=== PATIENT | female | born 1970 | race Caucasian/White ===

== ENCOUNTER 2024-12-17 17:02 | Emergency (ER) | payer SELFPAY ==
--- OUTSIDE RECORDS SUMMARY | 2022-09-13 08:56 | XMS_ITS | Continuity of Care Document ---
Author Organization [facility] Address [address] [place] [address] Phone Care Team Providers Care Assistant Teacher Name Role Phone Physicians, [facility] Unavailable Unavailable Allergies, Adverse Reactions, Alerts Substance Reaction Status Criticality No Known Allergies Active No Inform ation Medications Medication Instructions Dosage Effective Dates (start - stop) Status Comments Taltz Syringe 80 mg/mL subcutaneous inject 1 milliliter by subcutaneous route every 4 weeks in the abdomen, thigh, or upper arm rotating injection sites 80 MG - Active Procedures Procedure Date Functional Outcome Documented Positive A ND Care Plan CHIROPRACTIC MANIPULATION CHIROPRACTIC MANIPULATION THERAPEUTIC EXERCISES NEUROMUSCULAR REEDUCATION Functional Outcome Documented Positive A ND Care Plan CHIROPRACTIC MANIPULATION Current Medications Documented By Provid er NEUROMUSCULAR REEDUCATION CHIROPRACTIC MANIPULATION Current Medications Documented By Provid er THERAPEUTIC EXERCISES CHIROPRACTIC MANIPULATION Current Medications Documented By Provid er THERAPEUTIC EXERCISES CHIROPRACTIC MANIPULATION CHIROPRACTIC MANIPULATION E-stim Unattended Therapeutic Procedure (each 15 Minutes) PT Unlisted Therapeutic Procedure Current Medications Documented By Provid er BMI Above Normal Limits And Follow Up Do cumented Screened For Tobacco Use And Cessation I nterventio PT High Complexity THERAPEUTIC EXERCISES CHIROPRACTIC MANIPULATION CHIROPRACTIC MANIPULATION E-stim Unattended Therapeutic Procedure (each 15 Minutes) PT Unlisted Therapeutic Procedure Functional Outcome Documented Positive A ND Care Plan CHIROPRACTIC MANIPULATION CHIROPRACTIC MANIPULATION E-stim Unattended Therapeutic Procedure (each 15 Minutes) PT Unlisted Therapeutic Procedure CHIROPRACTIC MANIPULATION CHIROPRACTIC MANIPULATION E-stim Unattended Therapeutic Procedure (each 15 Minutes) PT Unlisted Therapeutic Procedure CHIROPRACTIC MANIPULATION CHIROPRACTIC MANIPULATION E-stim Unattended Therapeutic Procedure (each 15 Minutes) PT Unlisted Therapeutic Procedure CHIROPRACTIC MANIPULATION CHIROPRACTIC MANIPULATION E-stim Unattended Therapeutic Procedure (each 15 Minutes) PT Unlisted Therapeutic Procedure THERAPEUTIC EXERCISES THERAPEUTIC EXERCISES Functional Outcome Documented Positive A ND Care Plan CHIROPRACTIC MANIPULATION CHIROPRACTIC MANIPULATION E-stim Unattended Therapeutic Procedure (each 15 Minutes) PT Unlisted Therapeutic Procedure CHIROPRACTIC MANIPULATION CHIROPRACTIC MANIPULATION E-stim Unattended Therapeutic Procedure (each 15 Minutes) PT Unlisted Therapeutic Procedure Current Medications Documented By Provid er BMI Above Normal Limits And Follow Up Do cumented Screened For Tobacco Use And Cessation I nterventio PT Moderate Complexity THERAPEUTIC EXERCISES CHIROPRACTIC MANIPULATION CHIROPRACTIC MANIPULATION E-stim Unattended Therapeutic Procedure (each 15 Minutes) PT Unlisted Therapeutic Procedure CHIROPRACTIC MANIPULATION CHIROPRACTIC MANIPULATION E-stim Unattended Therapeutic Procedure (each 15 Minutes) PT Unlisted Therapeutic Procedure CHIROPRACTIC MANIPULATION CHIROPRACTIC MANIPULATION E-stim Unattended Therapeutic Procedure (each 15 Minutes) PT Unlisted Therapeutic Procedure THERAPEUTIC EXERCISES E-stim Unattended ULTRASOUND THERAPY CHIROPRACTIC MANIPULATION CHIROPRACTIC MANIPULATION E-stim Unattended Therapeutic Procedure (each 15 Minutes) PT Unlisted Therapeutic Procedure CHIROPRACTIC MANIPULATION CHIROPRACTIC MANIPULATION E-stim Unattended Therapeutic Procedure (each 15 Minutes) PT Unlisted Therapeutic Procedure THERAPEUTIC EXERCISES E-stim Unattended ULTRASOUND THERAPY CHIROPRACTIC MANIPULATION CHIROPRACTIC MANIPULATION E-stim Unattended Therapeutic Procedure (each 15 Minutes) PT Unlisted Therapeutic Procedure THERAPEUTIC EXERCISES E-stim Unattended ULTRASOUND THERAPY Functional Outcome Documented Positive A ND Care Plan CHIROPRACTIC MANIPULATION CHIROPRACTIC MANIPULATION E-stim Unattended Therapeutic Procedure (each 15 Minutes) PT Unlisted Therapeutic Procedure Current Medications Documented By Provid er BMI Above Normal Limits And Follow Up Do cumented Screened For Tobacco Use And Cessation I nterventio Functional Status Shoulder Score = Or > 0 PT Moderate Complexity THERAPEUTIC EXERCISES E-stim Unattended ULTRASOUND THERAPY CHIROPRACTIC MANIPULATION CHIROPRACTIC MANIPULATION CHIROPRACTIC MANIPULATION Intermediate New Patient Visit 14 Advance Directives Directive Yes / No Effective Date File Name Other Directive No N/A N/A WARNING:The information contained in this section is historical and is provided for information only and does not constitute a legal document or any assurance that the information is still accurate. Please verify the information with the baker of the legal document before using it for clinical purposes. Encounters Encounter Description Practice Location Reason(s) For Visit Diagnoses Date Provider Providers Copied on Encounter [facility], [address] [place] [address], [id number], tel:[phone] [facility] No Information 3 Physicians [facility]. [address] [place] [address], [id number], [place]. tel:[phone] [facility], [address] [place] [address], [id number], [place] tel:[phone] [facility] [place] cervical spine (chief complaint) Encounter for screening, unspecifiedS egmental and somatic dysfunction of lumbar regionVerteb rogenic low back painSegmenta l and somatic dysfunction of thoracic regionSegmen becky and somatic dysfunction of cervical region Apr- 2 Brigido Teague. [address], [place], [id number], [place]. tel:[phone] Referring Provider: Guerline Vasquez, [facility] [address], [place], [address]. tel:[phone] [facility], [address] [place] [address], [id number], [place] tel:[phone] [facility] [place] cervical spine (chief complaint) Segmental and somatic dysfunction of lumbar regionVerteb rogenic low back painSegmenta l and somatic dysfunction of thoracic regionSegmen becky and somatic dysfunction of cervical region Apr-2 2202 2 Brigido Teague. [address] [place] [address], [id number], [place]. tel:[phone] Referring Provider: Manolo Rob, [address] [place] [address], [id number]. tel:[phone] [facility], [address] [place] [address], [id number], [place] tel:[phone] [place] [address] Benign paroxysmal vertigo, unspecified earUnspecifi ed abnormalitie s of gait and mobility Apr-2 2 James Nugent. [address] [place] [address], [id number], [place]. tel:[phone] Referring Provider: Sravan Moore, [address] [facility], [place], [address]. tel:[phone] [facility], [address] [place] [address], [place], [id number], [place] tel:[phone] [place] [address] Benign paroxysmal vertigo, unspecified earUnspecifi ed abnormalitie s of gait and mobility Mar- 6 2 James Nugent. [address] [place] [address], [id number], [place]. tel:[phone] Referring Provider: Sravan Moore, [address], [place], [address]. tel:[phone] [facility], [address] [place] [address], [id number], [place] tel:[phone] [facility] [place] cervical spine (chief complaint) Encounter for screening, unspecifiedS egmental and somatic dysfunction of lumbar regionVerteb rogenic low back painSegmenta l and somatic dysfunction of thoracic regionSegmen becky and somatic dysfunction of cervical region Jun- 2 Brigido Teague. [address] [place] [address], [id number], [place]. tel:[phone] Referring Provider: Manolo Rob, [address] [place] [address], [id number]. tel:[phone] [facility], [address] [place] [address], [id number], [place] tel:[phone] [facility] Benign paroxysmal vertigo, unspecified earUnspecifi ed abnormalitie s of gait and mobility 2 James Nugent. [address] [place] [address], [id number], [place]. tel:[phone] Referring Provider: Sravan Moore, [address] [facility], [place], [address]. tel:[phone] [facility], [address] [place] [address], [id number], [place] tel:[phone] [facility] [place] cervical spine (chief complaint) Segmental and somatic dysfunction of lumbar regionVerteb rogenic low back painSegmenta l and somatic dysfunction of thoracic regionSegmen becky and somatic dysfunction of cervical regionSegmen becky and somatic dysfunction of lumbar region 2 Brigido AUSTIN Teague. [address], [place], [id number], [place]. tel:[phone] Referring Provider: Manolo Rob, [address] [place] [address], [id number]. tel:[phone] [facility], [address] [place] [address], [id number], [place] tel:[phone] [facility] Benign paroxysmal vertigo, unspecified earUnspecifi ed abnormalitie s of gait and mobility Jun- 2 James Nugent. [address] [place] [address], [id number], [place]. tel:[phone] Referring Provider: Sravan Moore, [address] [facility], [place], [address]. tel:[phone] [facility], [address] [place] [address], [id number], [place] tel:[phone] [facility] [place] cervical spine (chief complaint) Segmental and somatic dysfunction of lumbar regionVerteb rogenic low back painSegmenta l and somatic dysfunction of thoracic regionSegmen becky and somatic dysfunction of cervical region Jun-0 2 Fofana AUSTIN Teague. [address] [place] [address], [id number], [place]. tel:[phone] Referring Provider: Sravan Moore, [address] [facility], [place], [address]. tel:[phone] [facility], [address] [place] [address], [id number], [place] tel:[phone] [facility] Benign paroxysmal vertigo, unspecified earUnspecifi ed abnormalitie s of gait and mobility Jun-0 2 James Nugent. [address] [place] [address], [id number], [place]. tel:[phone] Referring Provider: Sravan Moore, [address] [facility], [place], [address]. tel:[phone] [facility], [address] [place] [address], [id number], [place] tel:[phone] [facility] [place] cervical spine (chief complaint) Sprain of ligaments of cervical spine, subsequent encounterSpr ain of ligaments of thoracic spine, subsequent encounterSpr ain of ligaments of lumbar spine, subsequent encounterSeg mental and somatic dysfunction of upper extremitySpr ain of ligaments of cervical spine, subsequent encounter Mar-0 2 Brigido Teague. [address] [place] [address], [id number], [place]. tel:[phone] Referring Provider: Manolo Rob, [address] [place] [address], [id number]. tel:[phone] [facility], [address] [place] [address], [id number], [place] tel:[phone] [facility] Benign paroxysmal positional vertigo, unspecified lateralityGa it disturbance May- 2 James Nugent. [address] [place] [address], [id number], [place]. tel:[phone] Referring Provider: Sravan Moore, [address], [place], [address]. tel:[phone] [facility], [address] [place] [address], [id number], [place] tel:[phone] [place] [address] cervical spine (chief complaint) Sprain of ligaments of cervical spine, subsequent encounterSpr ain of ligaments of thoracic spine, subsequent encounterSpr ain of ligaments of lumbar spine, subsequent encounterSeg mental and somatic dysfunction of upper extremity 2 Brigido Teague. [address] [place] [address], [id number], [place]. tel:[phone] Referring Provider: Manolo Rob, [address] [place] [address], [id number]. tel:[phone] [facility], [address] [place] [address], [id number], [place] tel:[phone] [place] [address] cervical spine (chief complaint) Body mass index (BMI) 29.0-29.9, adultEncount er for screening, unspecifiedS prain of ligaments of cervical spine, subsequent encounterSpr ain of ligaments of thoracic spine, subsequent encounterSpr ain of ligaments of lumbar spine, subsequent encounterSeg mental and somatic dysfunction of upper extremity 2 Brigido Teague. [address] [place] [address], [id number], [place]. tel:[phone] Referring Provider: Manolo Rob, [address] [place] [address], [id number]. tel:[phone] [facility], [address] [place] [address], [id number], [place] tel:[phone] [facility] cervical spine (chief complaint) Sprain of ligaments of cervical spine, subsequent encounterSpr ain of ligaments of thoracic spine, subsequent encounterSpr ain of ligaments of lumbar spine, subsequent encounterSeg mental and somatic dysfunction of upper extremity 1 Brigido Teague. [address], [place], [id number], [place]. tel:[phone] Referring Provider: Rachel Farr, [address] [place], [address]. tel:[phone] [facility], [address] [place] [address], [id number], [place] tel:[phone] [place] [address] [facility] [place] lumbar spine (chief complaint) cervical spine (chief complaint) Sprain of ligaments of cervical spine, subsequent encounterSpr ain of ligaments of thoracic spine, subsequent encounterSpr ain of ligaments of lumbar spine, subsequent encounterSeg mental and somatic dysfunction of upper extremity Mar- 1 Brigido Teague. [address], [place], [id number], [place]. tel:[phone] Referring Provider: Manolo Rob, [address] [place] [address], [id number]. tel:[phone] [facility], [address] [place] [address], [id number], [place] tel:[phone] [place] [address] [place] cervical spine (chief complaint) Sprain of ligaments of cervical spine, subsequent encounterSpr ain of ligaments of thoracic spine, subsequent encounterSpr ain of ligaments of lumbar spine, subsequent encounterSeg mental and somatic dysfunction of upper extremity 1 Brigido Teague. [address], [place], [id number], [place]. tel:[phone] Referring Provider: Manolo Rob, [address] [place], [address]. tel:[phone] [facility], [address] [place] [address], [id number], [place] tel:[phone] [facility] Benign paroxysmal vertigo, unspecified ear 1 James Nugent. [address], [place], [id number], [place]. tel:[phone] Referring Provider: Rachel Farr, [address] [place], [address]. tel:[phone] [facility], [address] [place] [address], [id number], [place] tel:[phone] [place] [address] [facility] Benign paroxysmal vertigo, unspecified ear 1 James Nugent. [address] [place] [address], [id number], [place]. tel:[phone] Referring Provider: Rachel Farr, [address] [place] [address], [address]. tel:[phone] [facility], [address] [place] [address], [id number], [place] tel:[phone] [place] [address] cervical spine (chief complaint) Encounter for screening, unspecifiedS prain of ligaments of cervical spine, subsequent encounterSpr ain of ligaments of thoracic spine, subsequent encounterSpr ain of ligaments of lumbar spine, subsequent encounterSeg mental and somatic dysfunction of upper extremity Mar- 1 Brigido Teague. [address] [place] [address], [id number], [place]. tel:[phone] Referring Provider: [address], [place], [address]. tel:[phone] [place] [address], [address] [place] [address], [id number], [place] tel:[phone] [place] [address] cervical spine (chief complaint) Sprain of ligaments of cervical spine, subsequent encounterSpr ain of ligaments of thoracic spine, subsequent encounterSpr ain of ligaments of lumbar spine, subsequent encounterSeg mental and somatic dysfunction of upper extremity 1 Brigido Teague. [address] [place] [address], [id number], [place]. tel:[phone] Referring Provider: [address], [place], [address]. tel:[phone] [facility], [address] [place] [address], [id number], [place] tel:[phone] [facility] Benign paroxysmal positional vertigo, unspecified laterality 1 James Nugent. [address] [place] [address], [id number], [place]. tel:[phone] Referring Provider: Rachel Farr, [address] [place], [address]. tel:[phone] [facility], [address] [place] [address], [id number], [place] tel:[phone] [place] [address] [facility] cervical spine (chief complaint) Sprain of ligaments of cervical spine, subsequent encounterSpr ain of ligaments of thoracic spine, subsequent encounterSpr ain of ligaments of lumbar spine, subsequent encounterSeg mental and somatic dysfunction of upper extremity 1 Fofana AUSTIN Teague. [address] [place] [address], [id number], [place]. tel:[phone] Referring Provider: [address], [place], [address]. tel:[phone] [facility], [address] [place] [address], [id number], [place] tel:[phone] [place] [address] cervical spine (chief complaint) Sprain of ligaments of cervical spine, subsequent encounterSpr ain of ligaments of thoracic spine, subsequent encounterSpr ain of ligaments of lumbar spine, subsequent encounterSeg mental and somatic dysfunction of upper extremity 1 Brigido Teague. [address] [place] [address], [id number], [place]. tel:[phone] Referring Provider: [address], [place], [address]. tel:[phone] [facility], [address] [place] [address], [id number], [place] tel:[phone] [place] [address] cervical spine pain (chief complaint) Sprain of ligaments of cervical spine, subsequent encounterSpr ain of ligaments of thoracic spine, subsequent encounterSpr ain of ligaments of lumbar spine, subsequent encounterSeg mental and somatic dysfunction of upper extremity 1 Brigido Teague. [address] [place] [address], [id number], [place]. tel:[phone] Referring Provider: [address], [place], [address]. tel:[phone] [facility], [address] [place] [address], [id number], [place] tel:[phone] [place] [address] [facility] Pain in left shoulder 1 James Nugent. [address] [place] [address], [id number], [place]. tel:[phone] Referring Provider: [address], [place], [address]. tel:[phone] [facility], [address] [place] [address], [id number], [place] tel:[phone] [place] [address] cervical spine (chief complaint) Sprain of ligaments of cervical spine, subsequent encounterSpr ain of ligaments of thoracic spine, subsequent encounterSpr ain of ligaments of lumbar spine, subsequent encounterSeg mental and somatic dysfunction of upper extremityBod y mass index (BMI) 27.0-27.9, adult 1 Brigido Teague. [address] [place] [address], [id number], [place]. tel:[phone] Referring Provider: [address], [place], [address]. tel:[phone] [facility], [address] [place] [address], [id number], [place] tel:[phone] [place] [address] cervical spine (chief complaint) Sprain of ligaments of cervical spine, subsequent encounterSpr ain of ligaments of thoracic spine, subsequent encounterSpr ain of ligaments of lumbar spine, subsequent encounterSeg mental and somatic dysfunction of upper extremity 1 Brigido Teague. [address], [place], [id number], [place]. tel:[phone] Referring Provider: [address], [place], [address]. tel:[phone] [facility], [address] [place] [address], [id number], [place] tel:[phone] [place] [address] [facility] Pain in left shoulder 1 James Nugent. [address], [place], [id number], [place]. tel:[phone] Referring Provider: [address], [place], [address]. tel:[phone] [place], [place] [address]s [facility], [address] [place] [address], [id number], tel:[phone] [place] [address] [place] cervical spine (chief complaint) Sprain of ligaments of cervical spine, subsequent encounterSpr ain of ligaments of thoracic spine, subsequent encounterSpr ain of ligaments of lumbar spine, subsequent encounterSeg mental and somatic dysfunction of upper extremitySpr ain of ligaments of cervical spine, subsequent encounter 1 Brigido Teague. [address] [place] [address], [id number], [place]. tel:[phone] Referring Provider: [address], [place], [address]. tel:[phone] [place], [place] [address]s [facility], [address] [place] [address], [id number], [place] tel:[phone] [place] [address] [place] Pain in left shoulder 0 1 James Nugent. [address] [place] [address], [id number], [place]. tel:[phone] Referring Provider: [address], [place], [address]. tel:[phone] [place], [place] [address]s [facility], [address] [place] [address], [id number], [place] tel:[phone] [place] [address] lumbar spine (chief complaint) cervical spine (chief complaint) Encounter for screening, unspecifiedS prain of ligaments of cervical spine, subsequent encounterSpr ain of ligaments of thoracic spine, subsequent encounterSpr ain of ligaments of lumbar spine, subsequent encounterSeg mental and somatic dysfunction of upper extremity 1 Brigido Teague. [address] [place] [address], [id number], [place]. tel:[phone] Referring Provider: [address], [place], [address]. tel:[phone] [facility], [address] [place] [address], [id number], [place] tel:[phone] [place] [address] [facility] Acute pain of left shoulderEnco unter for screening, unspecified 1 James Nugent. [address] [place] [address], [id number], . tel:[phone] Referring Provider: Thomas Zhou, [address] , [place], [address]. tel:[phone] [facility], [address] [place] [address], [id number], [place] tel:[phone] [place] [address] [facility] bilateral low back pain (chief complaint) No Information May- 4 Birgido Teague. [address] [place] [address], [id number], . tel:[phone] Referring Provider: Ho Eid, [address] [place] [address], [id number]. tel:[phone] [facility], [address] [place] [address], [id number], [place] tel:[phone] [place] [address] [facility] bilateral low back pain (chief complaint) No Information 0 4 Brigido Teague. [address] [place] [address], [id number], [place]. tel:[phone] Referring Provider: Ho Eid, [address] [place] [address], [id number]. tel:[phone] [facility], [address] [place] [address], [id number], [place] tel:[phone] [place] [address] [facility] bilateral low back pain (chief complaint) No Information b-0 3 4 Brigido Teague. [address] [place] [address], [id number], [place]. tel:[phone] Referring Provider: Ho Eid, [address] [place] [address], [id number]. tel:[phone] Intermediate New Patient Visit [facility], [address] [place] [address], [id number], [place] tel:[phone] [facility] bilateral low back pain (chief complaint) Nonallopathi c lesions of lumbar region, not elsewhere classifiedLu mbago / Lumbar PainNonallop athic lesions of sacral region, not elsewhere classifiedNo nallopathic lesions of thoracic region, not elsewhere classified [address] Brigido Teague. [address], [place], [id number], . tel:[phone] Referring Provider: Ho Eid, [address] [place], [address]. tel:[phone] Family History Family Member Type Diagnosis Age At Onset Close relative Problem (finding) malignant neoplasm of male breast Payers Payer name Insurance type Covered constitution party ID Nico jacobs(s) [facility] [employer] Plan Family CI [id number] Social History Type Description Quantity Date Captured Comments Alcohol Use Details wine Caffeine Use Details Unknown Tobacco Use Status Smoking Status Current some day smoker 023 Sex Female Chief Complaint And Reason For Visit No Information Reason For Referral Reason For Referral No Information Plan Of Treatment Date Type Action Status Goal Tobacco cessation counseling completed History Of Present Illness Encounter Date Complaint History Of Prese nt Illness cervical spine Estelita Hernandez is a 50 year old female. Ms Hernandez is a 50 year old female who complains of cervical spine. She presents with pain on the right and left side equally. The problem is fluctuating. Currently the patient states that the symptoms are mild-moderate. The pain is described as aching and deep. The patient is experiencing pain in the following location: neck. She rates her current pain as 4/10. cervical spine Estelita Hernandez is a 50 year old female. Ms Hernandez is a 50 year old female who complains of cervical spine. She presents with pain on the right and left side equally. The symptoms occur intermittently. The problem is fluctuating. Currently the patient states that the symptoms are mild-moderate. The pain is described as aching. The pain is described as. The patient is experiencing pain in the following location: neck on the right and left side equally. She rates her current pain as 4/10. cervical spine Estelita Hernandez is a 50 year old female. Ms Hernandez is a 50 year old female who complains of cervical spine. She presents with pain on the right and left side equally. The symptoms occur intermittently. Currently the patient states that the symptoms are mild-moderate. The pain is described as aching. The pain is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
[2024-12-17 17:19] VITALS: BP 136/90; PULSE 68; RESP 20; TEMP 36.4; O2SAT 99
--- OUTSIDE RECORDS SUMMARY | 2024-12-17 18:33 | XMS_ITS | Encounter Summary ---
Author Organization [facility] Healthcare Address [address] [place] [address] Care Team Providers Care Bilingual Research Interviewer Name Role Phone Radha Tipton PT Unavailable Nicole Reddy NP Primary Care Provider [phone] Reason for Visit * Reason Onset Date Comments Abdominal Pain 12/17/2024 Encounter Details Date Type Department Care Team (Late st Contact Info) Description 12/17/2024 Nurse Triage [facility] Medical Group Primary Care at [address] [address] Nicole Walker NP [address] [place] [address] [address] [place] [address] Social History Tobacco Use Types Packs/Day Years Used Date Smoking Tobacco: Every Day Cigarettes AUDIT-C Answer Date Recorded Q1: How often do you have a drink containing alc ohol? Monthly or less 09/01/2024 Q2: How many drinks containi ng alcohol do you have on a typical day when you are drinking? 3 or 4 09/01/2024 Q3: How often do you have si x or more drinks on one occasion? Never 09/01/2024 PHQ-2 Answer Date Recorded PHQ-2 Total Score (If total score is 3 or more points, staff should administer the PHQ-9) 2 10/14/2024 PHQ-9 Answer Date Recorded PHQ-9 Total Score 1 09/01/2024 Personal Safety Answer Date Recorded Have you ever been in or are you currently in a harmful physical or emotional relationship or is someone making you feel afraid or unsafe? 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 Worse today. Disposition Go to ED Now Disposition per guideline: GO TO ED NOW. Pt verbalized understanding. Routing to office to notify pt advised to go to ED due to constant abdominal pain Reason for Disposition [1] SEVERE pain (e.g., excruciating) AND [2] present > 1 hour Protocols Used Abdominal Pain - Jcobez-Jbwks-CP * Telephone Encounter - Shanice Cain RN - 12/17/2024 4:28 PM CDT Regarding: severe upper middle/left side abdominal pain, nausea ----- Message from Rebecca Ita sent at 12/17/2024 4:27 PM CDT ----- Symptom Based Call Chief Complaint(s): severe upper middle/left side abdominal pain, nausea Duration: started a couple days ago, worsening onset today What type of symptom(s) is the patient experiencing? Red Flag. Is the patient concerned they are experiencing a medical emergency requiring an ambulance? No Additional Comments: Patient states she started having abdominal pain in the upper middle and left side a couple day ago but now is severe and radiating into her back. She advised she is also nauseous. Patient did state history of diverticulitis and does currently have diverticulosis, she is unsureif this could be causing the pain. Does message need to be routed? Yes-Action Needed documented in this encounter Plan of Treatment Not on file documented as of this encounter Visit Diagnoses Not on filedocumented in this encounter Care Teams Bilingual Research Interviewer Relationship Specialty Start Date End Date Nicole Walker SPEECH/LANGUAGE THERAPIST [address] [place] [address] PCP - General Family Medicine 09/30/24 Radha Tipton, PT Physical Therapist Physical Therapy 07/01/23 documented as of this encounter
--- OUTSIDE RECORDS SUMMARY | 2024-12-17 18:33 | XMS_ITS | Encounter Summary ---
Author Organization [facility] Address [address] [place] [address] Care Team Providers Care Casket Trimmer Name Role Phone Nicole Walker VALIDATION LEADER Primary Care Provider [phone] Radha Tipton PT Unavailable Unavailabl e Nicole Walker VALIDATION LEADER Primary Care Provider [phone] Reason for Visit * Reason Onset Date Comments Cancel 12/02/2023 Appointment can eled for Estelita Hernandez ([id number])Visit type: BELL MAKER TREATMENT12/02/2023 10:00 AM (45 minutes) with LIZ Pizarro in [facility] Reason for cancellation: Canceled via MyChart Encounter Details Date Type Department Care Team (Late st Contact Info) Description 12/02/2023 Telephone [facility] Physical Therapy [address] [place] [id number] Donna Zhong SLP Cancel (Appointment canceled for Estelita Hernandez ([id number])/Visit type: BELL MAKER TREATMENT/12/02/2023 10:00 AM (45 minutes) with LIZ Pizarro in [facility]/ /Reason for cancellation: Canceled via MyChart/) Social History Tobacco Use Types Packs/Day Years Used Date Smoking Tobacco: Some Days Cigarettes PHQ-2 Answer Date Recorded PHQ-2 Total Score (If total score is 3 or more points, staff should administer the PHQ-9) 2 09/02/2023 PHQ-9 Answer Date Recorded PHQ-9 Total Score 11 09/02/2023 Personal Safety Answer Date Recorded Getting School Help Needed Not on file 04/16 Comments Unknown Sex and Gender Information Value Date Recorded Sex Assigned at Not on file Legal 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
--- OUTSIDE RECORDS SUMMARY | 2024-12-17 18:33 | XMS_ITS | Encounter Summary ---
Author Organization [facility] Healthcare Address [address] [place] [address] Care Team Providers Care Batch Room Technician Name Role Phone Radha Tipton PT Unavailable Nicole Reddy NP Primary Care Provider [phone] Encounter Details Date Type Department Care Team (Late st Contact Info) Description 10/28/2024 Results Follow-Up [facility] Medical Group Primary Care at [address] [address] Yamileth Loving NP [address] [place] [address] [address] [place] [address] Screening Mammogram Bilateral W Samir Social History Tobacco Use Types Packs/Day Years [...] on file 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
--- OUTSIDE RECORDS SUMMARY | 2024-12-17 18:33 | XMS_ITS | Clinical Summary ---
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 PELVIS REASON FOR STUDY: Aortic aneurysm suspected Worsening back pain TECHNIQUE: CTA scan of the chest, abdomen, and pelvis performed without and with intravenous and without oral contrast using helical scanning technique with dynamic intravenous contrast injection. Precontrast images of the chest were acquired. Arterial phase images of the chest, abdomen, and pelvis as well as portal venous phase images of the abdomen were also acquired. Reconstructed coronal and sagittal MPR images reviewed. All images stored on PACS. 3D MIP images rendered on scanning unit and reviewed at time of interpretation. Automated exposure control was used as a dose optimization technique for this examination. CONTRAST TYPE/DOSE: 100mL of IOVERSOL 350 MG IODINE/ML INTRAVENOUS SYRINGE injected via intravenous COMPARISON: None available FINDINGS: VASCULATURE No dissection, aneurysm, intramural hematoma, rupture, or penetrating atherosclerotic ulcer. No identified central pulmonary embolus. No large vessel occlusion. CELIAC TRUNK: No flow limiting stenosis, dissection, or aneurysm. SUPERIOR MESENTERIC ARTERY: No flow limiting stenosis, dissection, or aneurysm. RIGHT RENAL ARTERY: No flow limiting stenosis, dissection, or aneurysm. LEFT RENAL ARTERY: No flow limiting stenosis, dissection, or aneurysm. INFERIOR MESENTERIC ARTERY: No flow limiting stenosis, dissection, or aneurysm. AORTA: No flow limiting stenosis, dissection, or aneurysm. ILIAC ARTERIES: No flow limiting stenosis, dissection, or aneurysm. CHEST LUNGS: Mild nodularity along the undersurface of the major fissure may represent prominent lymph nodes. No masses. No pneumonia. PLEURA: No effusion. No pneumothorax. MEDIASTINUM/ISIDRA: No identified masses or abnormal nodes. HEART: Heart size is normal with no pericardial effusion. AXILLA: No adenopathy. CHEST WALL: No masses. No subcutaneous air. HARDWARE/LINES/TUBES: None. MUSCULOSKELETAL CHEST: No significant abnormality. ABDOMEN/PELVIS LIVER: Normal size. No identified cystic or solid masses. No cysts. GALLBLADDER: Surgically absent BILE DUCTS: Mild prominent intrahepatic and extrahepatic biliary prominence may be secondary to reservoir phenomena. SPLEEN: Normal size. No focal lesions. PANCREAS: No identified cystic or solid masses. No significant calcifications. No adjacent inflammation or peripancreatic fluid collections. Pancreatic duct not dilated. ADRENALS: Normal. KIDNEYS/URINARY TRACT: No identified significant cystic or solid masses. No stones. No hydronephrosis or hydroureter. Symmetric enhancement. Urinary bladder is unremarkable. GI: Postsurgical changes suggestive of prior gastric bypass. The excluded stomach and pancreaticobiliary limb appears unremarkable. The gastrojejunostomy and jejunojejunostomy is within normal limits. No dilated bowel loops. No obvious wall thickening. Normal appendix. No significant diverticular disease. PERITONEUM: No ascites or free air. RETROPERITONEUM: No mass or adenopathy. REPRODUCTIVE: No significant abnormality. VASCULATURE ABDOMEN: No abdominal aortic aneurysm. No major occlusion or flow limiting stenosis. MUSCULOSKELETAL ABDOMEN PELVIS: No acute finding. OTHER: No significant abnormality. IMPRESSION: 1. No evidence of aortic dissection or aneurysm. 2. Postsurgical changes suggestive of prior gastric bypass without complication. 3. Mild prominent intrahepatic and extrahepatic biliary prominence may be secondary to reservoir phenomena. THIS IS AN ELECTRONICALLY VERIFIED FINAL REPORT 10/07/2024 4:09 PM - Electronically signed by Karthikeyan Garcia M.D. JA: FLORIDALMA Report ID: [id number] Reading Location: [id number] Procedure Note Karthikeyan Garcia MD - 10/07/2024 EXAM DESCRIPTION: CTA CHEST ABDOMEN PELVIS REASON FOR STUDY: Aortic aneurysm suspected Worsening back pain TECHNIQUE: CTA scan of the chest, abdomen, and pelvis performed withoutand with intravenous and without oral contrast using helical scanningtechnique with dynamic intravenous contrast injection. Precontrast images of thechest were acquired. Arterial phase images of the chest, abdomen, and pelvis aswell as portal venous phase images of the abdomen were also acquired.Reconstructed coronal and sagittal MPR images reviewed. All images stored on PACS. 3DMIP images rendered on scanning unit and reviewed at time of interpretation. Automated exposure control was used as a dose optimization technique forthis examination. CONTRAST TYPE/DOSE: 100mL of IOVERSOL 350 MG IODINE/ML INTRAVENOUS SYRINGE injected via intravenous COMPARISON: None available FINDINGS: VASCULATURE No dissection, aneurysm, intramural hematoma, rupture, or penetrating atherosclerotic ulcer. No identified central pulmonary embolus. Nolarge vessel occlusion. CELIAC TRUNK: No flow limiting stenosis, dissection, or aneurysm. SUPERIOR MESENTERIC ARTERY: No flow limiting stenosis, dissection, or aneurysm. RIGHT RENAL ARTERY: No flow limiting stenosis, dissection, or aneurysm. LEFT RENAL ARTERY: No flow limiting stenosis, dissection, or aneurysm. INFERIOR MESENTERIC ARTERY: No flow limiting stenosis, dissection, or aneurysm. AORTA: No flow limiting stenosis, dissection, or aneurysm. ILIAC ARTERIES: No flow limiting stenosis, dissection, or aneurysm. CHEST LUNGS: Mild nodularity along the undersurface of the major fissure may represent prominent lymph nodes. No masses. No pneumonia. PLEURA: No effusion. No pneumothorax. MEDIASTINUM/ISIDRA: No identified masses or abnormal nodes. HEART: Heart size is normal with no pericardial effusion. AXILLA: No adenopathy. CHEST WALL: No masses. No subcutaneous air. HARDWARE/LINES/TUBES: None. MUSCULOSKELETAL CHEST: No significant abnormality. ABDOMEN/PELVIS LIVER: Normal size. No identified cystic or solid masses. No cysts. GALLBLADDER: Surgically absent BILE DUCTS: Mild prominent intrahepatic and extrahepatic biliaryprominence may be secondary to reservoir phenomena. SPLEEN: Normal size. No focal lesions. PANCREAS: No identified cystic or solid masses. No significant calcifications. No adjacent inflammation or peripancreatic fluidcollections. Pancreatic duct not dilated. ADRENALS: Normal. KIDNEYS/URINARY TRACT: No identified significant cystic or solid masses.No stones. No hydronephrosis or hydroureter. Symmetric enhancement.Urinary bladder is unremarkable. GI: Postsurgical changes suggestive of prior gastric bypass. The excluded stomach and pancreaticobiliary limb appears unremarkable. The gastrojejunostomy and jejunojejunostomy is within normal limits. Nodilated bowel loops. No obvious wall thickening. Normal appendix. No significant diverticular disease. PERITONEUM: No ascites or free air. RETROPERITONEUM: No mass or adenopathy. REPRODUCTIVE: No significant abnormality. VASCULATURE ABDOMEN: No abdominal aortic aneurysm. No major occlusion orflow limiting stenosis. MUSCULOSKELETAL ABDOMEN PELVIS: No acute finding. OTHER: No significant abnormality. IMPRESSION: 1. No evidence of aortic dissection or aneurysm. 2. Postsurgical changes suggestive of prior gastric bypass without complication. 3. Mild prominent intrahepatic and extrahepatic biliary prominence maybe secondary to reservoir phenomena. THIS IS AN ELECTRONICALLY VERIFIED FINAL REPORT 10/07/2024 4:09 PM - Electronically signed by Karthikeyan Garcia M.D. JA: FLORIDALMA Report ID: [id number] Reading Location: [place] [address] PROCEDURES Final R esult * CT Lumbar Spine WO Contrast (10/07/2024 2:51 PM CDT) Anatomical Region Laterality Modality Spine N/A Computed Tomogra phy 10/07/2024 3:08 PM CDT Narrative 10/07/2024 3:14 PM CDT EXAM DESCRIPTION: CT LUMBAR SPINE WO CONTRAST REASON FOR STUDY: Lumbar radiculopathy, trauma Back pain today TECHNIQUE: Axial images acquired through the lumbar spine without intravenous contrast. Reconstructed coronal and sagittal MPR images reviewed. All images stored on PACS. Automated exposure control was used as a dose optimization technique for this examination. COMPARISON: 07/04/2023 FINDINGS: SEGMENTATION: No transitional anatomy. The lowest well-developed disc space is labeled L5-S1. SURGICAL HARDWARE: None in the spine. ALIGNMENT: Normal. VERTEBRAE: Diffuse bone demineralization. No acute displaced fracture. Vertebral body heights are grossly maintained. INTERVERTEBRAL DISCS: Well-maintained. INDIVIDUAL LEVELS: No acute displace fracture or traumatic malalignment of the lumbar spine. T12/L1: No significant spinal canal or neuroforaminal narrowing. L1/L2: No significant spinal canal or neuroforaminal narrowing. L2/L3: Concentric disc bulge and facet arthrosis resulting in mild spinal canal narrowing. No significant neural foraminal narrowing. L3/L4: Concentric disc bulge and facet arthrosis resulting in mild spinal canal narrowing. Degenerative changes contribute to mild right neural foraminal narrowing. L4/L5: Concentric disc bulge and facet arthrosis result in mild to moderate spinal canal narrowing. Degenerative changes contribute to moderate bilateral neural foraminal narrowing. L5/S1: Concentric disc bulge and facet arthrosis results in [id number] bilateral neural foraminal narrowing. No significant spinal canal narrowing. SOFT TISSUES: No significant or acute finding in adjacent soft tissues. OTHER: Status post cholecystectomy. Atherosclerotic changes of the abdominal aorta and its major branches. No abdominal aortic aneurysm. No definite acute abnormality within the visualized abdomen or pelvis. IMPRESSION: 1. No acute displaced fracture or traumatic malalignment of the lumbar spine. 2. Multilevel degenerative changes of the lumbar spine most pronounced at L4-L5 where there is [id number] spinal canal narrowing and moderate bilateral neural foraminal narrowing. THIS IS AN ELECTRONICALLY VERIFIED FINAL REPORT 10/07/2024 3:14 PM - Electronically signed by Zach Dowling M.D. NS: NS Report ID: [id number] Reading Location: [id number] Procedure Note Zach Dowling MD - 10/07/2024 EXAM DESCRIPTION: CT LUMBAR SPINE WO CONTRAST REASON FOR STUDY: Lumbar radiculopathy, trauma Back pain today TECHNIQUE: Axial images acquired through the lumbar spine withoutintravenous contrast. Reconstructed coronal and sagittal MPR images reviewed. Allimages stored on PACS. Automated exposure control was used as a dose optimization technique forthis examination. COMPARISON: 07/04/2023 FINDINGS: SEGMENTATION: No transitional anatomy. The lowest well-developed discspace is labeled L5-S1. SURGICAL HARDWARE: None in the spine. ALIGNMENT: Normal. VERTEBRAE: Diffuse bone demineralization. No acute displaced fracture. Vertebral body heights are grossly maintained. INTERVERTEBRAL DISCS: Well-maintained. INDIVIDUAL LEVELS: No acute displace fracture or traumatic malalignmentof the lumbar spine. T12/L1: No significant spinal canal or neuroforaminal narrowing. L1/L2: No significant spinal canal or neuroforaminal narrowing. L2/L3: Concentric disc bulge and facet arthrosis resulting in mild spinal canal narrowing. No significant neural foraminal narrowing. L3/L4: Concentric disc bulge and facet arthrosis resulting in mild spinal canal narrowing. Degenerative changes contribute to mild right neural foraminal narrowing. L4/L5: Concentric disc bulge and facet arthrosis result in mild tomoderate spinal canal narrowing. Degenerative changes contribute to moderatebilateral neural foraminal narrowing. L5/S1: Concentric disc bulge and facet arthrosis results osjvag-fx-[id number] bilateral neural foraminal narrowing. No significant spinal canalnarrowing. SOFT TISSUES: No significant or acute finding in adjacent soft tissues. OTHER: Status post cholecystectomy. Atherosclerotic changes of the abdominal aorta and its major branches. No abdominal aortic aneurysm. No definite acute abnormality within the visualized abdomen or pelvis. IMPRESSION: 1. No acute displaced fracture or traumatic malalignment of the lumbarspine. 2. Multilevel degenerative changes of the lumbar spine most pronouncedat L4-L5 where there is antu-ls-osgvdqra spinal canal narrowing and moderate bilateral neural foraminal narrowing. THIS IS AN ELECTRONICALLY VERIFIED FINAL REPORT 10/07/2024 3:14 PM - Electronically signed by Zach Dowling M.D. NS: NS Report ID: [id number] Reading Location: [id number] Vickie XIAO IMG CT PROCEDURES Final R esult * eGFR (10/07/2024 2:35 PM CDT) eGFR >90 >=60 mL/min/1. 73 m2 Comment: Interpretive Data Reference Interval Normal >/= 90 mL/min/1.73m2 Mildly decreased* 60 - 89 mL/min/1.73m2 Mildly to moderately decreased 45 - 59 mL/min/1.73m2 Moderately to severely decreased 30 - 44 mL/min/1.73m2 Severely decreased 15 - 29 mL/min/1.73m2 Kidney Failure < 15 mL/min/1.73m2 *Relative to young adult level Estimated glomerular filtration rate is determined by the 2020 CKD-EPI equation recommended by the National Kid[employer] (A Unifying Approach to GFR Estimation: Recommendations of the NKF-ASK Task Force on Reassessing the Inclusion of Race in Diagnosing Kidney Disease, JASN 2020). The CKD-EPI equation should not be used for patients with unstable renal function and has not been validated in children and those over 70. Current interpretive data was last reviewed 2021. Blood 10/07/2024 2:35 PM CDT 10/07/2024 2:43 PM CDT Vickie XIAO LAB BLOOD ORDERABLES Eunice l Result RICKI BATES (ROSE BUD) 1 [facility] Department [place] [address] * Differential, auto (10/07/2024 2:35 PM CDT) Neutrophil abs 5.40 1.50 - 6.50 K/cumm Imm gran abs 0.03 0.00 - 0.10 K/cumm [facility] ([facility]) Lymphocyte abs 2.92 0.80 - 3.30 K/cumm [facility] ([place]) Monocyte abs 0.41 0.20 - 0.80 K/cumm [facility] ([place]) Eosinophil abs 0.23 0.00 - 0.50 K/cumm [facility] ([place]) Basophil abs 0.06 0.00 - 0.10 K/cumm [facility] ([place]) Neutrophil pct 59.7 % [facility] ([place]) Comment: Interpretive Data Percent cell count reference ranges are not reported, since discordance with absolute values may lead to misinterpretation of CBC data. Current Interpretive Data was last revised on 2017. Imm gran pct 0.3 % [facility] ([place]) Comment: Interpretive Data Percent cell count reference ranges are not reported, since discordance with absolute values may lead to misinterpretation of CBC data. Current Interpretive Data was last revised on 2017. Lymphocyte pct 32.3 % [facility] ([facility]) Comment: Interpretive Data Percent cell count reference ranges are not reported, since discordance with absolute values may lead to misinterpretation of CBC data. Current Interpretive Data was last revised on 2017. Monocyte pct 4.5 % [facility] ([place]) Comment: Interpretive Data Percent cell count reference ranges are not reported, since discordance with absolute values may lead to misinterpretation of CBC data. Current Interpretive Data was last revised on 2017. Eosinophil pct 2.5 % [facility] ([facility]) Comment: Interpretive Data Percent cell count reference ranges are not reported, since discordance with absolute values may lead to misinterpretation of CBC data. Current Interpretive Data was last revised on 2017. Basophil pct 0.7 % [facility] ([place]) Comment: Interpretive Data Percent cell count reference ranges are not reported, since discordance with absolute values may lead to misinterpretation of CBC data. Current Interpretive Data was last revised on 2017. Blood 10/07/2024 2:35 PM CDT 10/07/2024 2:43 PM CDT Vickie XIAO LAB BLOOD ORDERABLES Eunice l Result [facility] ([place]) 1 [facility] [place] [address] * (ABNORMAL) CBC with auto differential (10/07/2024 2:35 PM CDT) [facility] WBC 9.05 3.80 - 9.90 K/cumm Hgb 13.0 11.9 - 15.5 g/dL [facility] ([place]) Hct 39.7 35.6 - 45.5 % [facility] ([place]) Plt 318 150 - 400 K/cumm [facility] ([place]) MPV 9.2 9.1 - 12.3 fL [facility] ([place]) RBC 4.85 3.90 - 5.20 M/cumm [facility] ([place]) MCV 81.9 81.3 - 96.4 fL [facility] ([place]) MCH 26.8(L) 27.1 - 33.3 pg [facility] ([place]) MCHC 32.7 32.3 - 35.7 g/dL [facility] ([place]) RDW CV 15.4(H) 11.1 - 14.9 % [facility] ([place]) RDW SD 45.8 35.7 - 48.1 fL [facility] ([place]) NRBC abs 0.00 0.00 - 0.01 K/cumm [facility] ([place]) Blood 10/07/2024 2:35 PM CDT 10/07/2024 2:43 PM CDT us Vickie XIAO LAB BLOOD ORDERABLES Eunice l Result [facility] ([place]) 1 [facility] Department [place] [address] * Comprehensive metabolic panel (10/07/2024 2:35 PM CDT) [facility] Sodium 139 135 - 145 mmol/L Potassium, pl 4.3 3.3 - 4.9 mmol/L [facility] ([place]) Chloride 100 97 - 110 mmol/L [facility] ([place]) CO2 24 22 - 32 mmol/L [facility] ([place]) Anion gap 15 2 - 15 mmol/L [facility] ([place]) BUN 13 6 - 25 mg/dL [facility] ([place]) Creatinine 0.67 0.60 - 1.10 mg/dL [facility] ([place]) Glucose 92 70 - 199 mg/dL [facility] ([place]) Comment: Interpretive Data Fasting glucose >/= 126 mg/dl is diagnostic for diabetes. Fasting is defined as no caloric intake for at least 8 hours. Fasting glucose between 100 mg/dl to 125 mg/dl is diagnostic of prediabetes. In a patient with classic symptoms of hyperglycemia or hyperglycemic crisis, a random glucose >/= 200 mg/dl is diagnostic for diabetes. In the absence of unequivocal hyperglycemia, results should be confirmed by repeat testing. The classification and Diagnosis of Diabetes Diabetes Care 2021; 46: S19-S40. Current interpretive data was last revised 2022. Calcium 9.8 8.5 - 10.3 mg/dL [facility] ([place]) Bilirubin, total 0.2 0.1 - 1.2 mg/dL [facility] ([place]) Protein, pl 7.7 6.5 - 8.5 g/dL [facility] ([place]) Albumin 4.5 3.5 - 5.0 g/dL [facility] ([place]) Alk phos 110 40 - 130 Units/L [facility] ([place]) ALT 17 7 - 45 Units/L [facility] ([place]) AST 23 10 - 45 Units/L [facility] ([place]) Blood 10/07/2024 2:3 5 PM CDT 10/07/2024 2:43 PM CDT us Vickie XIAO LAB BLOOD ORDERABLES Eunice soliz Result [facility] ([place]) 1 [facility] Department [place] [address] * High Risk HPV DNA Detection with Genotyping (Molecular component) (09/01/2024 12:11 PM CDT) Pathologist [facility] [place] HPV HR 16 Not Detected Not Detected [facility] Comment:Testing performed by : [facility], [address] [place]., [address] HPV HR 18 Not Detected Not Detected RICKI OROPEZA Comment:Testing performed by : [facility], [address] [place]., [address] HPV HR Non 16/18 Not Detected Not Detected RICKI OROPEZA Comment: Interpretive Data Nucleic acid amplification for detection of high-risk Human Papilloma virus (HPV) is performed by the Ace Nesha 6800 HPV test. This assay specifically detects HPV-16 and HPV-18 genotypes. The following HPV genotypes are detected as high-risk HPV: HPV-31, 33, 35, ,39, 45, 51, 52, 56, 58, 59, 66, and 68. This assay has been approved by the [place] Food and Drug Administration for detection of HPV in cervical specimens collected by a physician using an endocervical brush/spatula or cervical broom and placed in the ThinPrep Pap Test PreservCyt collection containers. The performance characteristics of this test have been verified by the [facility] Molecular Infectious Disease laboratory. Correlate with separately reported cytology results, as applicable. Interpretive data last revised 22 Testing performed by: [facility], [address] [place]., [address] Endocervical 09/01/2024 12:1 1 PM CDT 09/02/2024 1:25 PM CDT Narrative RICKI OROPEZA - 09/02/2024 9:14 PM CDT Clinical history and diagnosis->WWE: Cervical Cancer Screening Testing type->Screening Last menstrual period (date if known)->Unknown us Latosha Mccann DO LAB BODY FLUIDS AND STO OLS ORDERABLES Final Result RICKI OROPEZA [id number] Department [place] [address] [facility] * Hepatitis C antibody Blood (07/04/2023 10:53 AM CDT) Hep C Ab Nonreactive Nonreactive Comment:Antibodies to HCV no t detected. Does NOT exclude the possibility of recent exposure to HCV. Current interpretive data was last revised on 21 Blood 07/04/2023 10:5 3 AM CDT 07/04/2023 11:51 AM CDT Alem Kirkpatrick MD PhD LAB MICROBI OLOGY - GENERAL ORDERABLES Edited Result - Final RICKI [facility] Department [place] [address] * Colonoscopy (03/05/2017) Anatomical Region Laterality Modality Other Historical Provider ENDOSCOPY PROCEDURES Eunice l Result from Last 3 Months or Most Recently Relevant to Health Maintenance Insurance [employer] [facility] Care Teams [employer] Relationship Specialty Start Date End Date Nicole Walker NP [address] [address] PCP - General Family Medicine 09/30/24 Radha Tipton, PT Physical Therapist Physical Therapy 07/01/23
--- OUTSIDE RECORDS SUMMARY | 2024-12-17 18:33 | XMS_ITS | Clinical Summary ---
Author Organization [facility] [employer] Address [address] [place] [address] Care Team Providers Care Shop Foreman Name Role Phone Unavailable Primary Care Provider Unavailabl e Source Comments [facility] [employer],non-owned Affiliates and Associated Physician Practices is amultiple site organization consisting of ambulatory clinics and hospital sitesin [place], [place], [place] and [place]. This disclosure is being madepursuant to the Care Everywhere program and may not contain all information available regarding this patient. Last updated 18.[facility] [employer] Allergies Active Allergy Reactions Criticality Noted Date Comments Cefadroxil Monohydrate Anaphylaxis High 01/05/2010 Medications * Be aware that medications may not be up to date on this document. Alwaysverify current medications with the patient. naproxen (NAPROSYN) 500 MG tablet Take 1 Tab by mouth 2 times daily as needed for Pain. 20 Tab 0 01/05/2010 Active Social History Tobacco Use Types Packs/Day Years Used Date Smoking Tobacco: Every Day Cigarettes Alcohol Use Standard Drinks/Week Comments No 0 (1 standard drink = 0.6 oz pur e alcohol) Comments Unknown Sex and Gender Information Value Date Recorded Sex Assigned at Not on file Legal Sex Female 9:21 AM [employer] Gender Identity Not on file Sexual Orientation Not on file Last Filed Vital Signs Vital Sign Reading Time Taken Comments Blood Pressure 127/82 01/05/2010 1:25 PM CDT Pulse 73 01/05/2010 1:25 PM CDT Temperature 36.7 C (98.1 F) 01/05/2010 10:57 AM CDT Respiratory Rate 18 01/05/2010 1:25 PM CDT Oxygen Saturation 98% 01/05/2010 1:25 PM CDT Inhaled Oxygen Concentration - - Weight 68 kg (150 lb) 01/05/2010 10:57 AM CDT Height 162.6 cm (5' 4) 01/05/2010 10:57 AM CDT Body Mass Index 25.75 01/05/2010 10:57 AM CDT Plan of Treatment Health Maintenance Due Date Last Done Comments COLOGUARD (AGES 45-75) - COL ON CA SCREENING 1969 COLON MONITORING 1969 COLONOSCOPY - COLON CA SCREENING 1969 CT COLONOGRAPHY - COLON CA SCREENING 1969 Colorectal Cancer Screening 1969 FIT - COLON CA SCREENING 1969 FLEX SIG - COLON CA SCREENING 1969 LIPID TESTING 1969 MAMMOGRAM 1969 HIV SCREENING 1984 HEPATITIS C SCREENING 08/21/1987 DTAP/TDAP/TD VACCINES (1 - Tdap) 1988 HEPATITIS B VACCINE (1 of 3 - 19+ 3-dose series) 1988 PNEUMOCOCCAL VACCINE 50+ (1 of 1 - PCV) 08/26/2019 ZOSTER VACCINE (1 of 2) 08/26/2019 COVID-19 VACCINE ( - 2023-2 5 season) 2023 DEPRESSION SCREENING 04/21/2024 INFLUENZA VACCINE (#1) 2024 HIB VACCINE Aged Out No longer eligi ble based on patient's age to complete this topic HPV VACCINE Aged Out No longer eligi ble based on patient's age to complete this topic MENINGOCOCCAL (Group B) VACC INE SHARED DECISION-MAKING Aged Out No longer eligibl e based on patient's age to complete this topic MENINGOCOCCAL GROUPS A/C/Y/W VACCINE Aged Out No longer eligible b ased on patient's age to complete this topic
== END 2024-12-17 19:16 | disposition left against medical advice (07) ==
PROVIDERS: PCP Nurse Practitioner Family
DX: R10.9 Unspecified abdominal pain (principal)
CPT/HCPCS: 99199